=== PATIENT | female | born 1985 | race Caucasian/White ===

== ENCOUNTER → 2016-10-14 | Outpatient (CLI) | payer BC | LOC: MW.CHFP 08:26 | PROVIDERS: ATTEND Family Medicine | DX: D64.9 Anemia, unspecified (principal); E66.01 Morbid (severe) obesity due to excess calories; R70.0 Elevated erythrocyte sedimentation rate; Z68.43 Body mass index [BMI] 50.0-59.9, adult; R79.89 Other specified abnormal findings of blood chemistry | CPT/HCPCS: 36415; 80061; 82607; 82670; 82728; 82746; 83001; 83002; 83036; 83525; 83550; 84144; 84402; 84439; 84443; 84445; 84481; 84550; 85027; 85045; 85652; 86376; 86430; 86812 ==

== ENCOUNTER → 2016-10-15 | Outpatient (CLI) | payer BC | LOC: MW.MNT 11:21 | PROVIDERS: ATTEND Family Medicine | DX: Z71.3 Dietary counseling and surveillance (principal); E66.01 Morbid (severe) obesity due to excess calories | CPT/HCPCS: 97802 ==